=== PATIENT | female | born 1985 | race Caucasian/White ===

== ENCOUNTER 2024-11-11 01:27 | Emergency (ER) | payer BC ==
[~2024-11-11] VITALS: Ht 170.2 cm; Wt 68.0 kg
[2024-11-11] MEDS ORDERED: IBUPROFEN 600 MG TABLET ONE (02:05)
[2024-11-11] MEDS: IBUPROFEN 600 MG TABLET PO ONE (02:09)
[2024-11-11 02:25] VITALS: BP 148/74; TEMP 97.7; O2SAT 98
== END 2024-11-11 02:25 | disposition home or self-care (01) ==
LOC: ER 01:37
DX: M79.602 Pain in left arm (principal)